=== PATIENT | female | born 1975 | race African-American/Black ===

== ENCOUNTER 2020-08-23 22:22 | Observation (INO) ==
[2020-08-23] MEDS ORDERED: MORPHINE 4 MG/1 ML VIAL IV STA (22:50)
[2020-08-23] MEDS ORDERED: NITROGLYCERIN 2% OINT 1 INCH/GM PACK TOP STA (22:50)
[2020-08-23] MEDS ORDERED: ONDANSETRON 4 MG/2 ML VIAL IV STA (22:50)
[2020-08-23] MEDS ORDERED: ASPIRIN 325 MG TABLET PO STA (22:50)
[2020-08-23 23:35] LABS: Basophils % 0.5 % (0.0-0.8); Eosinophils # 0.3 10*3/uL (0.0-0.87); Eosinophils % 3.7 % (0.00-10.9); Hematocrit 42.7 VOL% (35.7-47.0); Hemoglobin 13.7 GM/DL (12.0-16.0); Immature Granulocytes % 0.3 %; Immature Granulocytes Absolute 0.02 #; Lymphocytes # 4.3 10*3/uL (1.4-4.0); Lymphocytes % 54.7 % (21.3-54.2); Mean Corpuscular HGB Conc 32.1 GM/DL (32-36); Mean Corpuscular Volume 88.6 FL (87-102); Mean Platelet Volume 12.3 FL (9.6-12.0); Monocytes % 6.9 % (1.7-12.7); Neutrophils % 33.9 % (38.7-73.9); Platelet Count 140 T/CUMM (130-400); Red Blood Count 4.82 MC/CUMM (3.8-5.5); Red Cell Distribution Width 12.6 % (9.3-17.3); White Blood Count 7.9 T/CUMM (4-12)
[2020-08-24 00:11] LABS: Albumin 3.4 G/DL (3.4-5.0); Bilirubin,Total 0.4 MG/DL (0.2-1.0); Calcium 8.7 MG/DL (8.5-10.1); Osmolality,Calculated 279.3 MOS/KG (273-304); Total Protein 7.1 G/DL (6.4-8.2)
[2020-08-24 01:13] LABS: Eosinophils 4 % (0-10); Lymphocytes 58 % (20-55); Microcytosis 1+; Platelet Estimate Normal; Segmented Neutrophils 33 % (50-85); Total Cells Counted 100
[2020-08-24 01:14] LABS: Hypochromasia Slight
[2020-08-24 01:15] LABS: Polychromasia Slight; Stomatocytes Few
[2020-08-24] MEDS ORDERED: DEXTROSE 50% 25 GM/50 ML VIAL IV PRN (01:38)
[2020-08-24] MEDS ORDERED: MORPHINE 4 MG/1 ML VIAL IV PRN (01:38)
[2020-08-24] MEDS ORDERED: ONDANSETRON 4 MG/2 ML VIAL IV PRN (01:38)
[2020-08-24] MEDS ORDERED: ACETAMINOPHEN 325 MG TABLET PO PRN (01:38)
[2020-08-24] MEDS ORDERED: hydrALAZINE 20 MG/1 ML VIAL IV PRN (01:38)
[2020-08-24] MEDS ORDERED: NITROGLYCERIN SL 0.4 MG TABLET SL PRN (01:38)
[2020-08-24] MEDS ORDERED: DOCUSATE SODIUM 100 MG CAPSULE PO PRN (01:38)
[2020-08-24] MEDS ORDERED: GLUCAGON 1 MG VIAL IM PRN (01:38)
[2020-08-24] MEDS ORDERED: ENOXAPARIN 40 MG/0.4 ML SYRINGE SUBCUT SCH (02:00)
[2020-08-24 05:38] LABS: Basophils % 0.4 % (0.0-0.8); Eosinophils # 0.3 10*3/uL (0.0-0.87); Eosinophils % 4.4 % (0.00-10.9); Hematocrit 41.2 VOL% (35.7-47.0); Hemoglobin 13.1 GM/DL (12.0-16.0); Immature Granulocytes % 0.1 %; Immature Granulocytes Absolute 0.01 #; Lymphocytes # 4.3 10*3/uL (1.4-4.0); Lymphocytes % 59.3 % (21.3-54.2); Mean Corpuscular HGB Conc 31.8 GM/DL (32-36); Mean Corpuscular Volume 88.8 FL (87-102); Mean Platelet Volume 12.5 FL (9.6-12.0); Monocytes % 5.5 % (1.7-12.7); Neutrophils % 30.3 % (38.7-73.9); Platelet Count 127 T/CUMM (130-400); Red Blood Count 4.64 MC/CUMM (3.8-5.5); Red Cell Distribution Width 12.5 % (9.3-17.3); White Blood Count 7.3 T/CUMM (4-12)
[2020-08-24 06:07] LABS: Atypical Lymphocytes Few; Eosinophils 7 % (0-10); Hypochromasia 1+; Lymphocytes 61 % (20-55); Microcytosis 1+; Nucleated Red Blood Cells 2 (0-5); Segmented Neutrophils 26 % (50-85); Total Cells Counted 100
[2020-08-24 06:08] LABS: Platelet Estimate Adequate
[2020-08-24 06:35] LABS: Calcium 8.5 MG/DL (8.5-10.1); Osmolality,Calculated 278.3 MOS/KG (273-304); Potassium 3.4 MMOL/L (3.5-5.1); Risk Ratio 3.63; Thyroid Stimulating Hormone 4.33 uIU/ml (0.358-3.74); VLDL Cholesterol 29.2 MG/DL
[2020-08-24] MEDS ORDERED: amLODIPine 5 MG TABLET PO SCH (09:00)
[2020-08-24] MEDS ORDERED: ACETAMINOPHEN 325 MG TABLET PO SCH (09:52)
[2020-08-24] MEDS ORDERED: PANTOPRAZOLE 40 MG TABLET PO SCH (09:53)
[2020-08-24] MEDS ORDERED: ASPIRIN EC 81 MG TABLET PO SCH (09:53)
[2020-08-24] MEDS ORDERED: buPROPion 75 MG TABLET PO SCH (09:55)
[2020-08-24] MEDS ORDERED: POTASSIUM CHLORIDE 20 MEQ TABLET PO PRN (10:09)
[2020-08-24 13:56] VITALS: BP 132/74
[2020-08-24] MEDS ORDERED: GABAPENTIN 100 MG CAPSULE PO SCH (15:00)
== END 2020-08-24 13:50 | disposition home or self-care (01) ==
LOC: N.ED 22:22 → N.EDINP 22:22 → N.4E 08-24 02:41
PROVIDERS: ADMIT Internal Medicine Nephrology; ATTEND Internal Medicine Nephrology